=== PATIENT | male | born 1955 | race Two or more races ===

== ENCOUNTER 2020-05-20 22:55 | Emergency (ER) | payer OTHER ==
[~2020-05-20] VITALS: Ht 172.7 cm; Wt 72.6 kg
[2020-05-20] MEDS ORDERED: ALBUTEROL SULF8.5 G1 INH ×2 (23:14→23:16)
[2020-05-20] MEDS ORDERED: HUMALOG100 UNIT/4 SUBQ (23:14)
[2020-05-20] MEDS ORDERED: ACTOS30 MG GT (23:14)
--- NOTE | 2020-05-20 23:15 | NUR ---
ED Nurse Note: pt brought in by ambulance from [facility] due to generalized weakness and covid postice x1 day. pt has a trach but he is not Oxygen dependant( room air 97%). Vitals are stabel. No sob, cough and pain at the moment.
[2020-05-20] MEDS ORDERED: FENOFIBRATE200 MG GT (23:21)
[2020-05-20] MEDS ORDERED: HEPARIN2000 UNIT/ SUBQ (23:21)
[2020-05-20] MEDS ORDERED: HIBICLENS118 ML TP (23:21)
[2020-05-20] MEDS ORDERED: LIPITOR10 MG GT (23:21)
[2020-05-20] MEDS ORDERED: COLACE100 MG GT (23:21)
[2020-05-20] MEDS ORDERED: ARTIFICIAL TEAR15 ML LEFT EYE (23:21)
[2020-05-20] MEDS ORDERED: BENADRYL25 MG GT (23:21)
[2020-05-20] MEDS ORDERED: TRADJENTA5 MG GT (23:24)
[2020-05-20] MEDS ORDERED: METFORMIN HCL850 M1 GT (23:24)
[2020-05-20] MEDS ORDERED: METOCLOPRA10 MG/10 M GT (23:24)
[2020-05-20] MEDS ORDERED: PROMETHAZINE-C118 M1 GT (23:27)
[2020-05-20] MEDS ORDERED: MYLANTA TONIGH355 ML GT (23:27)
[2020-05-20] MEDS ORDERED: TYLENOL325 MG GT (23:27)
[2020-05-20] MEDS ORDERED: ASCORBIC ACID500 MG GT (23:32)
[2020-05-20] MEDS ORDERED: [UNRECOGNIZED DRUG - OTHER] GT (23:32)
[2020-05-20] MEDS ORDERED: VITAMIN A & D113 GM TP (23:32)
[2020-05-20] MEDS ORDERED: XOPENEX1.25 MG/3 HHN (23:32)
[2020-05-20] MEDS ORDERED: VITAMIN D32400 UNIT/ GT (23:32)
[2020-05-20 23:58] VITALS: BP 128/72
--- NOTE | 2020-05-21 00:29 | Emergency Room Report ---
History of Present Illness General Chief Complaint: Generalized Weakness Present Illness HPI 65-year-old male tracheostomy not ventilator dependent here after a positive Covid test and complaint of generalized weakness. Patient has no complaints at this time. He is awake and alert and refusing blood draws and has removed his restraints. He is nonverbal but shakes his head to deny any fevers, chills, chest pain, palpitation, shortness of breath, back pain, abdominal pain, nausea, vomiting, diarrhea, dysuria. 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 COVID-19 Screening: Positive COVID-19 COVID-19 Testing Source: outside facility Nursing Documentation-PMH Hx Hypertension: Yes Hx Diabetes: Yes Review of Systems All Other Systems: negative except mentioned in HPI Physical Exam Vital Signs Date Time Temp Pulse Resp B/P (MAP) Pulse Ox O2 Delivery O2 Flow Rate FiO2 05/20/20 23:01 99.5 90 18 117/67 (84) 98 Trach Collar 3.0 Sp02 EP Interpretation: reviewed, normal General Appearance: no apparent distress, alert, non-toxic Head: normocephalic, atraumatic Eyes: bilateral eye normal inspection, bilateral eye PERRL ENT: hearing grossly normal, normal pharynx, no angioedema, other - Tracheostomy in place without any surrounding erythema or induration or drainage Neck: full range of motion, supple/symm/no masses Respiratory: chest non-tender, lungs clear, normal breath sounds, speaking full sentences, other - Active coughing in the emergency department. Mild rales in all lung gan Cardiovascular #1: regular rate, rhythm, no edema Cardiovascular #2: 2+ carotid (R), 2+ carotid (L), 2+ radial (R), 2+ radial (L), 2+ dorsalis pedis (R), 2+ dorsalis pedis (L) Gastrointestinal: normal bowel sounds, non tender, soft, non-distended, no guarding, no rebound Rectal: deferred Genitourinary: normal inspection, no CVA tenderness Musculoskeletal: back normal, normal range of motion, gait/station normal, non- tender Neurologic: alert, motor strength/tone normal, oriented x3, sensory intact, responsive, speech normal Psychiatric: judgement/insight normal, memory normal, mood/affect normal, no suicidal/homicidal ideation Lymphatic: no adenopathy Medical Decision Making Diagnostic Impression: Primary Impression: COVID-19 Additional Impression: Episode of generalized weakness ER Course Laboratory Tests Test 05/20/20 23:59 White Blood Count 5.2 K/UL (4.8-10.8) Red Blood Count 3.56 M/UL (4.70-6.10) L Hemoglobin 11.4 G/DL (14.2-18.0) L Hematocrit 32.5 % (42.0-52.0) L Mean Corpuscular Volume 91 FL (80-99) Mean Corpuscular Hemoglobin 32.0 PG (27.0-31.0) H Mean Corpuscular Hemoglobin Concent 35.0 G/DL (32.0-36.0) Red Cell Distribution Width 19.2 % (11.6-14.8) H Platelet Count 300 K/UL (150-450) Mean Platelet Volume 8.5 FL (6.5-10.1) Neutrophils (%) (Auto) 61.0 % (45.0-75.0) Lymphocytes (%) (Auto) 29.8 % (20.0-45.0) Monocytes (%) (Auto) 8.3 % (1.0-10.0) Eosinophils (%) (Auto) 0.5 % (0.0-3.0) Basophils (%) (Auto) 0.4 % (0.0-2.0) Prothrombin Time 12.1 SEC (9.30-11.50) H Prothrombin Time INR 1.1 (0.9-1.1) Activated Partial Thromboplast Time 34 SEC (23-33) H D-Dimer 0.78 mg/L FEU (0.00-0.49) H Sodium Level 135 MMOL/L (136-145) L Potassium Level 3.8 MMOL/L (3.5-5.1) Chloride Level 99 MMOL/L (98-107) Carbon Dioxide Level 31 MMOL/L (21-32) Anion Gap 5 mmol/L (5-15) Blood Urea Nitrogen 13 mg/dL (7-18) Creatinine 1.0 MG/DL (0.55-1.30) Estimated Glomerular Filtration Rate > 60 mL/min (>60) Glucose Level 127 MG/DL (74-106) H Lactic Acid Level 1.10 mmol/L (0.4-2.0) Calcium Level 8.6 MG/DL (8.5-10.1) Ferritin 795 NG/ML (8-388) H Total Bilirubin 0.3 MG/DL (0.2-1.0) Aspartate Amino Transferase (AST) 56 U/L (15-37) H Alanine Aminotransferase (ALT) 36 U/L (12-78) Alkaline Phosphatase 47 U/L (46-116) Lactate Dehydrogenase 237 U/L (81-234) H Total Creatine Kinase 161 U/L (26-308) Creatine Kinase MB 0.5 NG/ML (0.0-3.6) Creatine Kinase MB Relative Index 0.3 Troponin I 0.005 ng/mL (0.000-0.056) C-Reactive Protein, Quantitative 11.1 mg/dL (0.00-0.90) H Pro-B-Type Natriuretic Peptide 464 pg/mL (0-125) H Total Protein 8.1 G/DL (6.4-8.2) Albumin 3.3 G/DL (3.4-5.0) L Globulin 4.8 g/dL Albumin/Globulin Ratio 0.7 (1.0-2.7) L Lipase 201 U/L (73-393) Chest x-ray: Tracheostomy normal positioning. Diffuse interstitial appearing pulmonary infiltrates in lower lung gan. No large consolidation. No pleural effusion. No free air under the diaphragm. No bony abnormalities 65-year-old male known Covid positive here with generalized weakness. However on arrival the patient was completely awake and alert and refusing all blood draws and removed his own restraints. He said that he did not want any work-up and was questioning why he was in the emergency department. He said that he felt normal and was in no acute distress. He had normal vital signs including a normal pulse oxygen saturation on room air in the emergency department. Labs were largely unremarkable. No indication for inpatient treatment at this time. Patient discharged to assisted. EKG: NSR, no ischemia, intervals WNL. No ectopy. Rate 97 bpm Rhythm strip: patient monitored for arrhythmias - no malignant dysrhythmias, runs of PVCs, nor pauses noted Last Vital Signs Date Time Temp Pulse Resp B/P (MAP) Pulse Ox O2 Delivery O2 Flow Rate FiO2 05/20/20 23:01 99.5 90 18 117/67 (84) 98 Trach Collar 3.0 Referrals: Marilee Anton MD (PCP) Gil Hernández M.D. May 21, 2020 00:29
[2020-05-21 00:57] LABS: BASOPHILS % (AUTO) 0.4 % (0.0-2.0); EOSINOPHILS % (AUTO) 0.5 % (0.0-3.0); HEMATOCRIT 32.5 % (42.0-52.0); HEMOGLOBIN 11.4 G/DL (14.2-18.0); LYMPHOCYTES % (AUTO) 29.8 % (20.0-45.0); MEAN CORPUSCULAR VOLUME 91 FL (80-99); MONOCYTES % (AUTO) 8.3 % (1.0-10.0); PLATELET COUNT 300 K/UL (150-450); RED BLOOD COUNT 3.56 M/UL (4.70-6.10); RED CELL DISTRIBUTION WIDTH 19.2 % (11.6-14.8); WHITE BLOOD COUNT 5.2 K/UL (4.8-10.8)
[2020-05-21 01:09] LABS: ANION GAP 5 mmol/L (5-15); BLOOD UREA NITROGEN 13 mg/dL (7-18); CALCIUM 8.6 MG/DL (8.5-10.1); CARBON DIOXIDE 31 MMOL/L (21-32); CHLORIDE 99 MMOL/L (98-107); POTASSIUM 3.8 MMOL/L (3.5-5.1); SODIUM 135 MMOL/L (136-145)
[2020-05-21 01:16] LABS: INR 1.1 (0.9-1.1)
[2020-05-21 01:26] LABS: ALANINE AMINOTRANSFERASE 36 U/L (12-78); ALBUMIN 3.3 G/DL (3.4-5.0); ALBUMIN/GLOBULIN RATIO 0.7 (1.0-2.7); ALKALINE PHOSPHATASE 47 U/L (46-116); ASPARTATE AMINO TRANSFERASE 56 U/L (15-37); BILIRUBIN,TOTAL 0.3 MG/DL (0.2-1.0); CKMB 0.5 NG/ML (0.0-3.6); CREATINE KINASE 161 U/L (26-308); FERRITIN 795 NG/ML (8-388); LACTATE DEHYDROGENASE 237 U/L (81-234)
--- NOTE | 2020-05-21 02:00 | NUR ---
ED Nurse Note: pt and vital signs are stable. no sob, fever, cough and pain.
[2020-05-21 02:08] VITALS: BP 126/86
[2020-05-21] MEDS ORDERED: Bamlanivimab 700 MG in NS 275 ML IVPB SCH (03:30)
[2020-05-21] MEDS ORDERED: Bamlanivimab Fact Sheet MISC ONE (03:30)
--- NOTE | 2020-05-21 04:05 | NUR ---
ED Nurse Note: Pt sleeping comfortably. Vitals are stable; no sob, cough and fever.
[2020-05-21 06:33] LABS: APPEARANCE,URINE CLEAR; BILIRUBIN, URINE NEGATIVE (NEGATIVE); GLUCOSE, URINE (UA) NEGATIVE (NEGATIVE); KETONES,URINE NEGATIVE (NEGATIVE); LEUKOCYTE ESTERASE ,URINE NEGATIVE (NEGATIVE); NITRITE,URINE NEGATIVE (NEGATIVE); PH,URINE 8 (4.5-8.0); PROTEIN,URINE 2+ (NEGATIVE); UROBILINOGEN,URINE NORMAL MG/DL (0.0-1.0)
[2020-05-21 06:38] LABS: COLOR,URINE YELLOW
--- NOTE | 2020-05-21 08:23 | NUR ---
ED Nurse Note: pt on bed, awake and alert, non-verbal, breathing even and unlabored, on RA. Pt started on bamlanivimab infusion; iv site patent, fact sheet read, on bedside, no acute distress noted.
[2020-05-21 08:28] VITALS: BP 130/88
--- NOTE | 2020-05-21 09:24 | NUR ---
ED Nurse Note: IV infusion finished. No complications nor adv reaction noted. Pt on bed, awake and alert, nad noted. Will continue to monitor.
--- NOTE | 2020-05-21 09:28 | Diagnostic Imaging Report ---
Indication: Cough Technique: XRAY Chest 1v Comparison: None Findings: Indwelling tracheostomy tube. There are peripheral based opacities in the left lower lung. Some very subtle interstitial opacity is also suggested in the periphery of the right lower lung. No significant pleural effusion. No pneumothorax. Heart size is within normal limits. No acute osseous abnormality. Impression: Bilateral infiltrates, left greater than right. Findings are concerning for multifocal pneumonia (particularly potential viral or atypical pneumonia), especially given history of cough. Clinical correlation and follow-up recommended.
--- NOTE | 2020-05-21 11:49 | NUR ---
ED Nurse Note: report given to adia solorio in [facility] for plan of care.
[2020-05-21 12:34] VITALS: BP 132/90
--- NOTE | 2020-05-21 12:34 | NUR ---
ER DISCHARGE NOTE: Patient is cleared to be discharged per ERMD, pt is AOx3, on RA, afebrile. Pt's RN engineering team supervisor on [facility] was given dc instructions, RN able to verbalized understanding. Pt's IV site kept in per RN in [facility]'s request. Pt left ED via BLS transport, stable condition, covid19 protocols observed.
== END 2020-05-21 12:45 | disposition home or self-care (01) ==
LOC: EDBD 22:55 → EMR 23:15
DX: U07.1 COVID-19 (principal); R53.1 Weakness; I10 Essential (primary) hypertension; E11.9 Type 2 diabetes mellitus without complications
CPT/HCPCS: 36415; 71045; 80053; 81003; 82550; 82553; 82728; 83605; 83615; 83690; 83880; 84484; 85025; 85379; 85610; 85730; 86140; 87040; 93005; J7050; Q0239; Z7502; 99284